=== PATIENT | female | born 1970 | race Caucasian/White ===

== ENCOUNTER 2017-04-15 11:05 | Emergency (ER) | payer BC ==
[2017-04-15] MEDS ORDERED: TRAMADOL HCL 50 MG TABLET PO ONE (11:24)
[2017-04-15] MEDS ORDERED: ONDANSETRON 4 MG TAB.RAPDIS PO ONE (11:24)
--- NOTE | 2017-04-15 11:26 | ER Document Report ---
ED General - General Chief Complaint: Lower Abdominal Pain Stated Complaint: ABDOMINAL PAIN Time Seen by Provider: 04/15/17 11:17 TRAVEL OUTSIDE OF THE [place] IN LAST 30 DAYS: No - HPI Patient complains to provider of: Resolved left lower quadrant abdominal pain Notes: Patient denies any pain at this time. States she had sharp left lower quadrant pain 8/10 without radiation cost become mildly nauseous but denies any episodes of emesis. Patient is no history of abdominal surgeries. Patient had a normal bowel movement this morning. Denies all the symptoms - Related Data Allergies/Adverse Reactions: aspirin Allergy (Verified 04/15/17 11:06) Sulfa (Sulfonamide Antibiotics) Allergy (Verified 04/15/17 11:06) Home Medications: Current Home Medications No Home Medications 04/15/17 [History] Past Medical History - Social History Smoking Status: Never Smoker Chew tobacco use (# tins/day): No Frequency of alcohol use: Occasional Drug Abuse: None Family History: None Patient has suicidal ideation: No Patient has homicidal ideation: No Renal/ Medical History: Denies: Hx Peritoneal Dialysis Review of Systems - Review of Systems Constitutional: No symptoms reported EENT: No symptoms reported Cardiovascular: No symptoms reported Respiratory: No symptoms reported Gastrointestinal: Abdominal pain, Nausea Genitourinary: No symptoms reported Female Genitourinary: No symptoms reported Musculoskeletal: No symptoms reported Skin: No symptoms reported Hematologic/Lymphatic: No symptoms reported Neurological/Psychological: No symptoms reported Physical Exam - Vital signs Vitals: Temp Pulse Resp BP Pulse Ox 97.8 F 88 16 168/85 H 100 04/15/17 11:11 04/15/17 11:11 04/15/17 11:11 04/15/17 11:11 04/15/17 11:11 Interpretation: Normal - General General appearance: Appears well, Alert - HEENT Head: Normocephalic, Atraumatic Eyes: Normal Pupils: PERRL - Respiratory Respiratory status: No respiratory distress Chest status: Nontender Breath sounds: Normal Chest palpation: Normal - Cardiovascular Rhythm: Regular Heart sounds: Normal auscultation Murmur: No - Abdominal Inspection: Normal Distension: No distension Bowel sounds: Normal Tenderness: Nontender Organomegaly: No organomegaly - Back Back: Normal, Nontender - Extremities General upper extremity: Normal inspection, Nontender, Normal color, Normal ROM , Normal temperature General lower extremity: Normal inspection, Nontender, Normal color, Normal ROM , Normal temperature, Normal weight bearing. No: Jaylen's sign - Neurological Neuro grossly intact: Yes Cognition: Normal Orientation: AAOx4 [place] Coma Scale Eye Opening: Spontaneous [place] Coma Scale Verbal: Oriented [place] Coma Scale Motor: Obeys Commands [place] Coma Scale Total: 15 Speech: Normal Motor strength normal: LUE, RUE, LLE, RLE Sensory: Normal - Psychological Associated symptoms: Normal affect, Normal mood - Skin Skin Temperature: Warm Skin Moisture: Dry Skin Color: Normal Course - Re-evaluation Re-evalutation: 04/15/17 11:24 Well-appearing female vital signs all stable within normal limits symptom-free at this time. - Vital Signs Vital signs: Temp Pulse Resp BP Pulse Ox 97.8 F 88 16 168/85 H 100 04/15/17 11:11 04/15/17 11:11 04/15/17 11:11 04/15/17 11:11 04/15/17 11:11
[2017-04-15] MEDS ORDERED: HYDROCODONE/ACETAMINOPHEN 5-325 MG TABLET PO ONE (11:28)
[2017-04-15 11:49] LABS: APPEARANCE,URINE SLIGHTLY-CLOUDY; BILIRUBIN,URINE NEGATIVE (NEGATIVE); COLOR,URINE YELLOW; GLUCOSE, URINE NEGATIVE (NEGATIVE); KETONES,URINE NEGATIVE (NEGATIVE); LEUKOCYTE ESTERASE,URINE TRACE (NEGATIVE); NITRITE,URINE NEGATIVE (NEGATIVE); PROTEIN,URINE NEGATIVE (NEGATIVE); URINE SPECIFIC GRAVITY 1.023; UROBILINOGEN,URINE NEGATIVE mg/dL (<2.0)
[2017-04-15 12:08] VITALS: BP 142/78
== END 2017-04-15 12:09 | disposition home or self-care (01) ==
LOC: ER 11:05
DX: R10.84 Generalized abdominal pain (principal); R11.0 Nausea; Z88.6 Allergy status to analgesic agent; Z88.2 Allergy status to sulfonamides
CPT/HCPCS: 99284; 87086; 87088; 81001; 87186; S0119

== ENCOUNTER 2018-09-29 22:08 | Emergency (ER) | payer BC, OTHER ==
--- NOTE | 2018-09-30 00:32 | ER Document Report ---
ED Medical Screen (RME) - General Chief Complaint: Chest Pain > 30 Stated Complaint: CHEST PAIN Time Seen by Provider: 09/30/18 00:29 Notes: 48-year-old female with history of hypertension comes in today with a midsternal chest pressure that does not radiate. Does not get better with GI/acid reflux meds. History of hypertension only. Does not smoke. Does not have a family history. Does not have diabetes or cholesterol. I have treated and performed a rapid initial assessment of this patient. A comprehensive ED assessment and evaluation of the patient, analysis of test results and completion of medical decision making process will be conducted by additional ED providers. PHYSICAL EXAMINATION: GENERAL: Well-appearing, well-nourished and in no acute distress. A&Ox4. Answers questions appropriately. LUNGS: Breath sounds clear to auscultation bilaterally and equal. No wheezes rales or rhonchi. HEART: Regular rate and rhythm without murmurs, rubs, gallops. ABDOMEN: Soft, nondistended abdomen. No guarding, no rebound. Normal bowel sounds present. No CVA tenderness bilaterally. + mild epigastric tenderness (cannot elicit thorough abd exam w/o table, however). Extremities: No cyanosis, clubbing, or edema b/l. NEUROLOGICAL: Normal speech, normal gait. PSYCH: Normal mood, normal affect. TRAVEL OUTSIDE OF THE [place] IN LAST 30 DAYS: No - Related Data Allergies/Adverse Reactions: aspirin Allergy (Verified 04/15/17 11:06) Sulfa (Sulfonamide Antibiotics) Allergy (Verified 04/15/17 11:06) Past Medical History - Social History Chew tobacco use (# tins/day): No Frequency of alcohol use: None Drug Abuse: None Renal/ Medical History: Denies: Hx Peritoneal Dialysis
[2018-09-30 04:10] LABS: ABSOLUTE BASOPHILS # (AUTO) 0.1 10^3/uL (0.0-0.2); ABSOLUTE EOSINOPHILS # (AUTO) 0.3 10^3/uL (0.0-0.6); ABSOLUTE LYMPHOCYTES (AUTO) 3.7 10^3/uL (0.5-4.7); ABSOLUTE MONOCYTES (AUTO) 1.1 10^3/uL (0.1-1.4); ABSOLUTE NEUT (AUTO) 10.1 10^3/uL (1.7-8.2); BASOPHILS % (AUTO) 0.5 % (0-2); EOSINOPHILS % (AUTO) 1.8 % (0-6); HEMATOCRIT 40.7 % (36.0-47.0); HEMOGLOBIN 13.7 g/dL (12.0-15.5); LYMPHOCYTES % (AUTO) 24.6 % (13-45); MEAN CORPUSCULAR HEMOGLOBIN 28.5 pg (27.0-33.4); MEAN CORPUSCULAR HGB CONC 33.8 g/dL (32.0-36.0); MEAN CORPUSCULAR VOLUME 85 fl (80-97); MONOCYTES % (AUTO) 7.2 % (3-13); PLATELET COUNT 347 10^3/uL (150-450); RED BLOOD COUNT 4.82 10^6/uL (3.72-5.28); RED CELL DISTRIBUTION WIDTH 13.1 % (11.5-14.0); SEGMENTED NEUTROPHILS % (AUTO) 65.9 % (42-78); TOTAL CELLS COUNTED % (AUTO) 100 %; WHITE BLOOD COUNT 15.3 10^3/uL (4.0-10.5)
--- NOTE | 2018-09-30 04:12 | RADIOLOGY REPORT (SQ) ---
CLINICAL HISTORY: chest pain COMPARISON: None. TECHNIQUE: XR CHEST 1 VIEW 09/30/2018 12:30 AM CDT FINDINGS: Cardiac silhouette is normal in size. Lungs are clear without consolidation, atelectasis, mass or edema. There is no pleural effusion. There is no pneumothorax. There are no acute osseous findings. IMPRESSION: Clear lungs.
[2018-09-30 04:27] LABS: ALANINE AMINOTRANSFERASE 31 U/L (9-52); ALBUMIN 4.5 g/dL (3.5-5.0); ALKALINE PHOSPHATASE 52 U/L (38-126); ANION GAP 10 (5-19); ASPARTATE AMINO TRANSFERASE 22 U/L (14-36); BILIRUBIN,DIRECT 0.2 mg/dL (0.0-0.4); BILIRUBIN,TOTAL 0.5 mg/dL (0.2-1.3); BLOOD UREA NITROGEN 11 mg/dL (7-20); CALCIUM 10.3 mg/dL (8.4-10.2); CARBON DIOXIDE 27 mmol/L (22-30); CHLORIDE 103 mmol/L (98-107); GLUCOSE 126 mg/dL (75-110); SODIUM 139.7 mmol/L (137-145); TOTAL PROTEIN 8.2 g/dL (6.3-8.2)
--- NOTE | 2018-09-30 04:42 | ER Document Report ---
Entered by MURRAY MURPHY SCRIBE 09/30/18 [id number] Acting as scribe for:LUIS CARLOS RUSSELL MD ED General - General Chief Complaint: Chest Pain > 30 Stated Complaint: CHEST PAIN Time Seen by Provider: 09/30/18 00:29 Mode of Arrival: Ambulatory Information source: Patient Notes: Patient is a 48-year-old female presenting to the emergency department complaining of chest pain onset 2 days ago. Patient describes the pain as a non radiating pressure located over her sternum that was onset while driving. 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 Patient also complains of one episode of diaphoresis. She denies any cough, shortness of breath, nausea or exacerbation of pain with food. TRAVEL OUTSIDE OF THE [place] IN LAST 30 DAYS: No - Related Data Allergies/Adverse Reactions: aspirin Allergy (Verified 04/15/17 11:06) Sulfa (Sulfonamide Antibiotics) Allergy (Verified 04/15/17 11:06) Past Medical History - General Information source: Patient - Social History Smoking Status: Never Smoker Chew tobacco use (# tins/day): No Frequency of alcohol use: None Drug Abuse: None Lives with: Spouse/Significant other Family History: None Patient has suicidal ideation: No Patient has homicidal ideation: No - Past Medical History Cardiac Medical History: Reports: Hx Hypertension Review of Systems - Review of Systems Constitutional: See HPI, Diaphoresis EENT: No symptoms reported Cardiovascular: See HPI, Chest pain Respiratory: No symptoms reported Gastrointestinal: No symptoms reported Genitourinary: No symptoms reported Female Genitourinary: No symptoms reported Musculoskeletal: No symptoms reported Skin: No symptoms reported Hematologic/Lymphatic: No symptoms reported Neurological/Psychological: No symptoms reported -: Yes All other systems reviewed and negative Physical Exam - Notes Notes: GENERAL: Alert, interacts well. No acute distress. HEAD: Normocephalic, atraumatic. EYES: Pupils equal, round, and reactive to light. Extraocular movements intact. ENT: Oral mucosa moist, tongue midline. NECK: Full range of motion. Supple. Trachea midline. LUNGS: Clear to auscultation bilaterally, no wheezes, rales, or rhonchi. No respiratory distress. Lower sternum is exquisitely tender to palpation, reproduces chief complaint. HEART: Regular rate and rhythm. No murmurs, gallops, or rubs. ABDOMEN: Soft, obese, minimal epigastric tenderness to palpation, no RUQ tenderness to palpation. Non-distended. Bowel sounds present in all 4 quadrants. No guarding, rigidity, or rebound. EXTREMITIES: Moves all 4 extremities spontaneously. No edema, radial and dorsalis pedis pulses 2/4 bilaterally. No cyanosis. NEUROLOGICAL: Alert and oriented x3. Normal speech. PSYCH: Normal affect, normal mood. SKIN: Warm, dry, normal turgor. No rashes or lesions noted. Course - Re-evaluation Re-evalutation: 09/30/18 05:54 The patient's EKG, chest x-ray, and lab work are all unremarkable except for a slight leukocytosis for which no explanation could be found. - Laboratory Result Diagrams: 09/30/18 03:51 09/30/18 03:51 Laboratory results interpreted by me: 09/30/18 09/30/18 03:51 03:51 WBC 15.3 H Absolute Neutrophils 10.1 H Glucose 126 H Calcium 10.3 H - Diagnostic Test Radiology reviewed: Image reviewed, Reports reviewed - Chest x-ray is unremarkable - EKG Interpretation by Me EKG shows normal: Sinus rhythm, Newman, Intervals, QRS Complexes, ST-T Waves Voltage: Consistant with LVH P Waves: LAE Heart block present: 1st Degree When compared to previous EKG there are: Previous EKG unavailable Discharge - Discharge Clinical Impression: Chest pain, mid sternal Leukocytosis Qualifiers: Leukocytosis type: unspecified Qualified Code(s): D72.829 - Elevated white blood cell count, unspecified Condition: Stable Disposition: HOME, SELF-CARE Additional Instructions: Chest Wall Pain Your chest pain has been diagnosed as coming from the chest wall. This is often caused by straining the muscles or joints in the chest during physical activity, direct trauma, coughing, or vigorous vomiting. Persons with arthritis are especially prone to this type of pain, due to inflammation of the cartilage joints near the breast bone. Occasionally, no cause can be found. Rest from strenuous physical activity. This kind of chest pain is usually made worse by movement of the chest. Depending on the symptoms, we may prescribe medicine for pain, muscle relaxation, and antiinflammatory effects. If the pain is new, and seems to be due to muscle strain, cold packs can help. Otherwise, apply gentle warmth to the painful area for 15 minutes every hour or two. You should contact the doctor immediately if things change. Further eval uation is needed if you develop a fever or cough, if the nature of the pain changes, or if you become short of breath. Unfortunately, the nonsteroidal anti-inflammatory medications(NSAIDS) work best for chest wall pain, but you report allergy or adverse reaction to the NSAIDs you have tried. You may try Tylenol for some pain relief. Moist heat to the painful sternal area should make it feel better. Try to avoid heavy lifting or straining that would make the problem worse. Follow-up with your primary care provider if not improving. RETURN TO THE EMERGENCY ROOM IF ANY NEW OR WORSENING SYMPTOMS. Forms: Return to Work Scribe Attestation: 09/30/18 05:29 I personally performed the services described in the documentation, reviewed and edited the documentation which was dictated to the scribe in my presence, and it accurately records my words and actions. I personally performed the services described in the documentation, reviewed and edited the documentation which was dictated to the scribe in my presence, and it accurately records my words and actions.
[2018-09-30 06:30] VITALS: BP 144/84
--- NOTE | 2018-09-30 19:14 | EKG REPORT ---
SEVERITY:- ABNORMAL ECG - SINUS RHYTHM FIRST DEGREE AV BLOCK PROBABLE LEFT ATRIAL ABNORMALITY LVH WITH SECONDARY REPOLARIZATION ABNORMALITY : Confirmed by: Parisa Laws MD 30-Sep-2018 19:13:16
== END 2018-09-30 06:30 | disposition home or self-care (01) ==
LOC: ER 22:08
DX: R07.89 Other chest pain (principal); D72.829 Elevated white blood cell count, unspecified; R61 Generalized hyperhidrosis; R10.816 Epigastric abdominal tenderness; I44.0 Atrioventricular block, first degree; I10 Essential (primary) hypertension; Z88.8 Allergy status to other drugs, medicaments and biological substances; Z88.2 Allergy status to sulfonamides
CPT/HCPCS: 36415; 71045; 80053; 84484; 85025; 85379; 93005; 93010; 99285